=== PATIENT | female | born 1975 | race Two or more races ===

== ENCOUNTER 2022-07-02 00:55 | Emergency (ER) | payer MEDICAID ==
[~2022-07-02] VITALS: Ht 152.4 cm; Wt 52.2 kg
[2022-07-02 01:00] VITALS: BP 110/78
--- NOTE | 2022-07-02 01:03 | NUR ---
TO LOBBY A/W BED AMBULATORY
--- NOTE | 2022-07-02 01:15 | NUR ---
PATIENT CAN NOT WAIT, SHE WENT HOME. PATIENT LEFT WITHOUT BEING SEEN BY DR. SAEED. NO FURTHER CARE PROVIDED FOR PATIENT.
== END 2022-07-02 01:15 | disposition left against medical advice (07) ==
LOC: MED 00:55
DX: M79.671 Pain in right foot (principal); Z53.21 Procedure and treatment not carried out due to patient leaving prior to being seen by health care provider
CPT/HCPCS: 99281